=== PATIENT | male | born 1970 | race American Indian/Alaskan Native ===

== ENCOUNTER 2016-07-18 15:36 | Outpatient (CLI) | payer OTHER ==
--- NOTE | 2016-07-19 07:24 | XRay Report ---
THORACIC SPINE: Back pain The bones are normally mineralized with well preserved vertebral height, alignment and interspace distances. No paraspinal soft tissue widening is noted. Of incidental note are degenerative spurs throughout the cervical spine. IMPRESSION: Normal study. LEFT SHOULDER: Pain Routine views demonstrate normal bony and soft tissue structures with normal joint alignment of the shoulder. IMPRESSION: Normal study. LEFT SCAPULA: Pain The bony architecture is intact without evidence of fracture or dislocation. No significant soft tissue abnormality is seen. IMPRESSION: Left scapula within normal limits.
== END 2016-07-18 15:37 | disposition home or self-care (01) ==
LOC: XRAY 15:36
PROVIDERS: ATTEND Family Medicine Adult Medicine
DX: S47.9 Crushing injury of shoulder and upper arm, unspecified arm (principal); M54.9 Dorsalgia, unspecified; X58.XXXA Exposure to other specified factors, initial encounter; Y93.89 Activity, other specified; Y92.89 Other specified places as the place of occurrence of the external cause; Y99.8 Other external cause status
CPT/HCPCS: 72072

== ENCOUNTER 2020-01-25 02:56 | Emergency (ER) | payer OTHER ==
[2020-01-25 03:09] VITALS: BP 140/100
[2020-01-25] MEDS ORDERED: IBUPROFEN 600 MG TAB PO ONE (03:38)
[2020-01-25] MEDS ORDERED: ACETAMINOPHEN 500 MG TAB PO ONE (03:38)
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
[2020-01-25 04:53] LABS: Amphetamine Screen,Urine PRESUMPTIVE NEGATIVE; Benzodiazepines Screen,Urine PRESUMPTIVE NEGATIVE; Cannabinoid Screen,Urine PRESUMPTIVE NEGATIVE; Cocaine Screen,Urine PRESUMPTIVE NEGATIVE; Methadone Screen,Urine PRESUMPTIVE NEGATIVE; Opiate Screen,Urine PRESUMPTIVE NEGATIVE
== END 2020-01-25 06:03 | disposition home or self-care (01) ==
LOC: ED 02:56
DX: S93.402A Sprain of unspecified ligament of left ankle, initial encounter (principal); I10 Essential (primary) hypertension; Z98.890 Other specified postprocedural states; Z79.1 Long term (current) use of non-steroidal anti-inflammatories (NSAID); Z79.899 Other long term (current) drug therapy; Z88.0 Allergy status to penicillin; V49.49XA Driver injured in collision with other motor vehicles in traffic accident, initial encounter; Y93.89 Activity, other specified; Y92.89 Other specified places as the place of occurrence of the external cause; Y99.8 Other external cause status
CPT/HCPCS: 80307

== ENCOUNTER 2020-07-24 22:28 | Emergency (ER) | payer SELFPAY ==
[2020-07-24 23:02] VITALS: BP 136/99
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
== END 2020-07-25 01:25 | disposition home or self-care (01) ==
LOC: ED 22:28
DX: Z02.83 Encounter for blood-alcohol and blood-drug test (principal); I10 Essential (primary) hypertension; D64.9 Anemia, unspecified; Z98.890 Other specified postprocedural states; Z79.899 Other long term (current) drug therapy; Z88.0 Allergy status to penicillin; V49.49XA Driver injured in collision with other motor vehicles in traffic accident, initial encounter; Y92.410 Unspecified street and highway as the place of occurrence of the external cause; Y93.89 Activity, other specified; Y99.8 Other external cause status
CPT/HCPCS: 36415; 80320; G0480